=== PATIENT | male | born 1985 | race Caucasian/White ===

== ENCOUNTER 2021-04-02 05:50 | Emergency (ER) | payer OTHER ==
[~2021-04-02] VITALS: Ht 185.4 cm; Wt 93.0 kg
[2021-04-02] MEDS ORDERED: DEXAMETHASONE 10 MG/ML VIAL PO ONE (06:15)
[2021-04-02] MEDS ORDERED: IPRATROPIUM BROMIDE (0.02%) 0.5MG/2.5ML NEB HHN ONE (06:15)
[2021-04-02] MEDS ORDERED: ALBUTEROL (0.083%) 2.5MG/3ML NEB HHN ONE (06:15)
[2021-04-02] MEDS ORDERED: DEXAMETHASONE 4MG TABLET PO SCH (06:30)
[2021-04-02] MEDS ORDERED: DEXA4TAB69 MT (07:27)
[2021-04-02] MEDS ORDERED: ALBU90AE INH (07:28)
[2021-04-02 07:50] VITALS: BP 122/72
== END 2021-04-02 07:50 | disposition home or self-care (01) ==
LOC: ER 05:50
DX: J45.901 Unspecified asthma with (acute) exacerbation (principal); Z79.51 Long term (current) use of inhaled steroids
CPT/HCPCS: 93005; 94640; 99283; Z7610; J8540